=== PATIENT | female | born 1940 | race Two or more races ===

== ENCOUNTER 2024-12-14 20:26 | Emergency (ER) | payer OTHER ==
[~2024-12-14] VITALS: Ht 162.6 cm; Wt 71.1 kg
[2024-12-14 21:08] LABS: Urine Protein, UAD Negative (Negative)
[2024-12-14 21:24] LABS: Hematocrit 40.6 % (36.0-46.0); Hemoglobin 13.7 g/dL (12.2-16.2); Mean Corpuscular Hemoglobin 30.0 pg (28.0-32.0); Mean Corpuscular Volume 88.9 fL (80.0-100.0); Nucleated Red Blood Cells % 0.0 %
--- NOTE | 2024-12-14 21:29 | DVH ---
CHEST RADIOGRAPH Indication: Shortness of breath Technique: Single frontal view of the chest was obtained COMPARISON: None FINDINGS: Lungs and pleural spaces are clear. Cardiac silhouette and pérez are within normal limits. Bones and s oft tissues demonstrate no significant abnormality. IMPRESSION: No acute disease.
[2024-12-14 21:40] LABS: Alanine Aminotransferase 31 U/L (7-40); Albumin 4.5 g/dL (3.2-4.8); Anion Gap 9 (5-15); BUN/Creatinine Ratio 6.5 (10.0-20.0); Bilirubin, Total 0.5 mg/dL (0.2-1.0); Calcium 9.8 mg/dL (8.7-10.4); Carbon Dioxide 26 mmol/L (20-31); Chloride 103 mmol/L (98-107); Glucose 93 mg/dL (74-106); Potassium 4.1 mmol/L (3.5-5.1); Sodium 138 mmol/L (136-145); Total Protein 7.9 g/dL (5.7-8.2)
[2024-12-14 21:42] LABS: Alkaline Phosphatase 147 U/L (46-116); Blood Urea Nitrogen 6 mg/dL (9-23)
[2024-12-14 22:58] VITALS: BP 181/99; PULSE 48; RESP 16; TEMP 98; O2SAT 97
[2024-12-15] MEDS: hydrALAZINE HCL 20 MG/ML VL IV ONE ×2 (00:35→01:33)
--- NOTE | 2024-12-15 01:24 | ED.PDOC ---
HPI Comments This patient is a pleasant the ED 4-year-old female who arrives the ED today due to complaints of palpitation and shortness a breath concerns. Patient states she was at home on her counts when the event occurred. At arrival, patient was hypertensive and continued experienced some palpitation concerns. Patient denied any fever nausea or vomiting. Patient was hypertensive on arrival with a blood pressure of 161/89 and tachycardic.. Chief Complaint: Palpitations Time Seen by MD: 20:30 Reviewed Notes: Nurses Notes, Valance Cutter Notes Information Source: Patient, Emergency Med Personnel Mode of Arrival: Ambulatory Severity: Moderate Timing: Minutes Duration: Since onset Prehospital treatment: None Location: Substernal Onset: At Rest Cardiac Risk Factors: None PE Risk Factors: None History of: Similar pain in past Associated Signs and Symptoms: SOB, Palpitations Past Medical History PAST MEDICAL HISTORY: HTN Surgical History: Denies all surgeries SR VICE PRESIDENT History: No Pertinent SR VICE PRESIDENT History Family History Family History: Reviewed,noncontributory to illness, No family hx of Cancer, No family hx of DM, No family hx of Heart jorgito, No family hx of HTN, No family hx ofKidney jorgito, No family hx of Liver jorgito, No family hx of Lung jorgito, No family hx of Stroke Social History Smoker: Non-Smoker Alcohol: Denies ETOH Use Drugs: Denies Drug Use Lives In: Home Constitutional: denies: chills, diaphoresis, fatigue, fever, malaise, sweats, weakness, others EENTM: denies: blurred vision, double vision, ear bleeding, ear discharge, ear drainage, ear pain, ear ringing, eye pain, eye redness, hearing loss, mouth pain, mouth swelling, nasal discharge, nose bleeding, nose congestion, nose tahmina n, photophobia, tearing, throat pain, throat swelling, voice changes, others Respiratory: reports: SOB at rest; denies: cough, hemoptysis, orthopnea, shortness of breath, SOB with excertion, stridor, wheezing, others Cardiovascular: reports: palpitations; denies: chest pain, dizzy spells, diaphoresis, Dyspnea on exertion, edema, irregular heart beat, left arm pain, lightheadedness, PND, syncope, others Gastrointestinal: denies: abdomen distended, abdominal pain, blood streaked bowels, constipated, diarrhea, dysphagia, difficulty swallowing, hematemesis, melena, nausea, poor appetite, poor fluid intake, rectal bleeding, rectal pain, vomiting, others Genitourinary: denies: abnormal vagina bleeding, burning, dyspareunia, dysuria, flank pain, frequency, hematuria, incontinence, pain, , vagina discharge, urgency, others Neurological: denies: dizziness, fainting, headache, left sided numbness, left sided weakness, numbness, paresthesia, pre-existing deficit, right sided numbness, right sided weakness, seizure, speech problems, tingling, tremors, weakness, others Musculoskeletal: denies: back pain, gout, joint pain, joint swelling, muscle pain, muscle stiffness, neck pain, others Integumetry: denies: bruises, change in color, change in hair/nails, dryness, laceration, lesions, lumps, rash, wounds, others Allergic/Immunocompromised: denies: Difficulty Healing, Frequent Infections, Hives, Itching, others Hematologic/Lymphatic: denies: anemia, blood clots, easy bleeding, easy bruising, swollen glands, others Endocrine: denies: excessive hunger, excessive sweating, excessive thirst, excessive urination, flushing, intolerance to cold, intolerance to heat, unexplained weight gain, unexplained weight loss, others Psychiatric: denies: anxiety, bipolar disorder, depression, hopeless, panic disorder, schizophrenia, sleepless, suicidal, others Physical Exam General Appearance: Moderate Distress ([id number] distress due to palpitation concerns. Patient appears to be in mildly poor health.), Normal HEENT: Normal ENT Inspection, Pharynx Normal, TMs Normal Neck: Full Range of Motion, Non-Tender, Normal, Normal Inspection Respiratory: Chest Non-Tender, Lungs Clear, No Accessory Muscle Use, No Respiratory Distress, Normal Breath Sounds Cardiovascular: No Edema, No JVD, No Murmur, No Gallop, Normal Peripheral Pulses, Tachycardia Breast Exam: Deferred Gastrointestinal: No Organomegaly, Non Tender, No Pulsatile Mass, Normal Bowel Sounds, Soft Genitalia: Deferred Pelvic: Deferred Rectal: Deferred Extremities: No calf tenderness, Normal inspection, Non-tender Neurologic: Alert Cerebellar Function: NOT DONE Reflexes: NOT DONE Skin: Dry, Normal Color, Warm Lymphatic: No Adenopathy Was a procedure done? Was a procedure done?: No CP Differential Dx Differential Diagnosis: A-fib, A-Flutter, Anxiety / Panic Attack, Atrial Dysrhythmia, AV Block 1st Degree, WA, Pulmonary Embolus Differential Diagnosis: CHF, HTN Essential, Other (Palpitations) Differential Diagnosis: Angina X-Ray, Labs, Meds, VS Vital Signs Date Time Temp Pulse Resp B/P (MAP) Pulse Ox O2 Delivery O2 Flow Rate FiO2 12/15/24 01:33 197/89 12/15/24 00:35 194/98 12/14/24 22:58 98.0 48 16 181/99 (126) 97 98.0 12/14/24 20:41 50 12/14/24 20:28 97.0 54 18 161/89 97 97.0 Lab Test 12/14/24 22:47 12/14/24 21:02 12/14/24 20:57 Range/Units Troponin I High Sensitivity 5 5 </=34 ng/L White Blood Count 5.2 4.4-10.8 10^3/uL Red Blood Count 4.56 4.0-5.20 10^6/uL Hemoglobin 13.7 12.2-16.2 g/dL Hematocrit 40.6 36.0-46.0 % Mean Corpuscular Volume 88.9 80.0-100.0 fL Mean Corpuscular Hemoglobin 30.0 28.0-32.0 pg Mean Corpuscular Hemoglobin Concent 33.7 32.0-36.0 g/dL Red Cell Distribution Width 15.8 H 11.8-14.3 % Platelet Count 204 140-450 10^3/uL Mean Platelet Volume 7.9 6.9-10.8 fL Neutrophils (%) (Auto) 48.0 37.0-80.0 % Lymphocytes (%) (Auto) 35.2 10.0-50.0 % Monocytes (%) (Auto) 11.5 0.0-12.0 % Eosinophils (%) (Auto) 4.7 0.0-7.0 % Basophils (%) (Auto) 0.6 0.0-2.0 % Neutrophils # (Auto) 2.5 1.6-8.6 10 ^3/uL Lymphocytes # (Auto) 1.8 0.4-5.4 10 ^3/uL Monocytes # (Auto) 0.6 0-1.3 10 ^3/uL Eosinophils # (Auto) 0.2 0-0.8 10 ^3/uL Basophils # (Auto) 0 0-0.2 10 ^3/uL Nucleated Red Blood Cells 0.0 % D-Dimer, Quantitative 0.39 0.0-0.49 mg/L FEU Sodium Level 138 136-145 mmol/L Potassium Level 4.1 3.5-5.1 mmol/L Chloride Level 103 98-107 mmol/L Carbon Dioxide Level 26 20-31 mmol/L Anion Gap 9 5-15 Blood Urea Nitrogen 6 L 9-23 mg/dL Creatinine 0.92 0.550-1.02 mg/dL Glomerular Filtration Rate Calc 62 >90 mL/min BUN/Creatinine Ratio 6.5 L 10.0-20.0 Serum Glucose 93 74-106 mg/dL Calcium Level 9.8 8.7-10.4 mg/dL Total Bilirubin 0.5 0.2-1.0 mg/dL Aspartate Amino Transferase (AST) 38 13-40 U/L Alanine Aminotransferase (ALT) 31 7-40 U/L Alkaline Phosphatase 147 H 46-116 U/L B-Type Natriuretic Peptide 46.05 0-100 pg/mL Total Protein 7.9 5.7-8.2 g/dL Albumin 4.5 3.2-4.8 g/dL Urine Color Light-yellow Yellow Urine Clarity Clear Clear Urine pH 7.0 5.0-9.0 Urine Specific [place] 1.003 1.001-1.035 Urine Protein Negative Negative Urine Ketones Negative Negative Urine Blood Negative Negative /uL Urine Nitrite Negative Negative Urine Bilirubin Negative Negative Urine Urobilinogen Normal Negative mg/dL Urine Leukocyte Esterase 1+ Negative /uL Urine RBC 1 0 - 4 /hpf Urine Microscopic WBC 5 0-5 /HPF Urine Squamous Epithelial Cells None seen <5 /hpf Urine Bacteria None seen None Seen /hpf Urine Glucose Normal Normal mg/dL Current Medications Medications (Trade) Dose Ordered Sig/Cec[place] Route Start Time Stop Time Status Last Admin Hydralazine HCl (Apresoline Injection) 10 mg ONCE ONCE IV 12/15/24 00:00 12/15/24 00:01 DC 12/15/24 00:35 Ceftriaxone Sodium 50 ml @ 100 mls/hr ONCE ONCE IV 12/15/24 01:15 12/15/24 01:44 12/15/24 01:36 Hydralazine HCl (Apresoline Injection) 10 mg ONCE ONCE IV 12/15/24 01:15 12/15/24 01:16 DC 12/15/24 01:33 X-Ray, Labs, Meds, VS Comment All studies performed the ED were evaluated by me personally. Serum laboratories were relatively unremarkable for any systemic concerns. Urinalysis confirmed a urinary tract infection. Patient required multiple medications to rectify her blood pressure concerns while at facility. Initial oral clonidine was ineffective and required two rounds of hydralazine to address blood pressure concerns. Additionally, patient displays signs of consistent bradycardia. EKG revealed a sinus rhythm with a rate of 50. Probable left atrial enlargement as well as borderline repolarization abnormality noted. VT interval 144 and QT interval 465. Patient will be admitted for antibiotic management of her urinary tract infection as well as a cardiac consultation to address the palpitation and blood pressure concerns. Patient's primary insurance as [employer] and therefore, I spoke with Dr. Yung [place]. Advised patient of initial presentation as well as imaging results, laboratories, EKG and response to treatment. He agreed to accept the patient for transfer. Authorization number [id number]. Time of 1ST Reevaluation: 01:21 Reevaluation 1ST: Improved Consultation: PCP, Cardiology Patient Education/Counseling: Diagnosis, Treatment Family Education/Counseling: Diagnosis, Treatment SEPSIS Sepsis Screen Date sepsis recognized/suspect: Dec 14, 2024 Time Sepsis recognized/suspect: 2034 Recent Procedure: No On Antibiotic Therapy: No Respiratory Rate >20: No Heart Rate >90: No Temp<36 C (96.8 F) or >38.3 C: No SBP <90 or MAP <65 mmHG: No New Acute Mental Status Change: No Is the patient on CPAP, BIPAP,: No Physician Orders Chest Portable (12/14/24 20:53) Heplock Iv (12/14/24 20:53) Electrocardigram (12/14/24 20:53) Ceftriaxone 1gm/50ml (Rocephin) (12/15/24 01:15) Vital Signs Date Time Temp Pulse Resp B/P (MAP) Pulse Ox O2 Delivery O2 Flow Rate FiO2 12/15/24 01:33 197/89 12/15/24 00:35 194/98 12/14/24 22:58 98.0 48 16 181/99 (126) 97 98.0 12/14/24 20:41 50 12/14/24 20:28 97.0 54 18 161/89 97 97.0 Laboratory Tests Test 12/14/24 21:02 White Blood Count 5.2 10^3/uL (4.4-10.8) Medications Medications Dose Ordered Sig/Cec[place] Route Start Time Stop Time Status Last Admin Dose Admin Ceftriaxone Sodium 50 ml @ 100 mls/hr ONCE ONCE IV 12/15/24 01:15 12/15/24 01:44 12/15/24 01:36 Hydralazine HCl 10 mg ONCE ONCE IV 12/15/24 00:00 12/15/24 00:01 DC 12/15/24 00:35 Hydralazine HCl 10 mg ONCE ONCE IV 12/15/24 01:15 12/15/24 01:16 DC 12/15/24 01:33 Departure 1 Departure Time of Disposition: 01:23 Impression: Primary Impression: Palpitations Additional Impressions: Acute coronary syndrome Hypertensive urgency UTI (urinary tract infection) Disposition: 09 ADMITTED INPATIENT Condition: Stable Discharged With: Self Critical Care Note Critical Care Time?: No Stability Stability form required: No Heart Score Heart Score: Heart Score Response (Comments) Value History Slightly Suspicious 0 EKG Repolarization Disturb 1 Age >65 2 Risk Factors 1 or 2 risk factors 1 Troponin Normal limit 0 Total 4 INDRA WALTER PAC Dec 15, 2024 01:24
--- NOTE | 2024-12-16 01:51 | ECG ---
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
== END 2024-12-15 02:46 | disposition left against medical advice (07) ==
LOC: ER 20:26
DX: I24.9 Acute ischemic heart disease, unspecified (principal); I16.0 Hypertensive urgency; N39.0 Urinary tract infection, site not specified; I10 Essential (primary) hypertension
CPT/HCPCS: 36415; 71045; 80053; 81001; 83880; 84484; 85025; 85379; 93005; 96365; 96375; 96376; 99285; J0360; J0696